=== PATIENT | female | born 1990 | race Caucasian/White ===

== ENCOUNTER 2021-05-25 17:38 | Inpatient (IN) | payer BC ==
[~2021-05-25 17:38] MED LIST: Bupivacaine 0.25% HCL 30 ML VIAL ONE
[2021-05-25] MEDS ORDERED: Butorphanol Tartrate 1 MG/ML VIAL SLOW IVP PRN (17:40)
[2021-05-25] MEDS ORDERED: Diphenoxylate HCl/Atropine Tablet PO PRN ×2 (17:40)
[2021-05-25] MEDS ORDERED: Lidocaine 1% (PF) 30 ML VIAL SC PRN (17:40)
[2021-05-25] MEDS ORDERED: Zolpidem Tartrate 5 MG TAB PO PRN (17:40)
[2021-05-25] MEDS ORDERED: HYDROcodone/Acetaminophen 5/325 mg Tablet PO PRN ×2 (17:40)
[2021-05-25] MEDS ORDERED: Ibuprofen 800 MG TAB PO PRN (17:40)
[2021-05-25] MEDS ORDERED: Misoprostol 200 MCG TAB PR PRN (17:40)
[2021-05-25] MEDS ORDERED: Acetaminophen 500 MG TAB PO PRN (17:40)
[2021-05-25] MEDS ORDERED: hydrALAZINE 20 MG/ML VIAL SLOW IVP PRN (17:40)
[2021-05-25] MEDS ORDERED: Ondansetron PF 4 MG/2 ML Vial IVP PRN (17:40)
[2021-05-25] MEDS ORDERED: Promethazine HCl 25 MG/ML VIAL IM PRN (17:40)
[2021-05-25] MEDS ORDERED: Docusate 100 MG CAP PO PRN (17:40)
[2021-05-25] MEDS ORDERED: Penicillin G Potassium 5 MILL.UNITS VIAL ONE (18:45)
[2021-05-25 18:59] VITALS: BMI 33.5
[2021-05-25] MEDS ORDERED: Penicillin G Potassium 5 MILL.UNITS in Sodium Chloride 0.9% 100 ML IVPB SCH (19:00)
[2021-05-25 19:14] LABS: Hemoglobin 10.2 g/dL (12.0-15.5); Mean Corpuscular HGB CONC 30.6 g/dL (32.0-36.0); Mean Corpuscular Hemoglobin 25.6 pg (27.0-33.0); Mean Corpuscular Volume 83.7 fl (81.6-98.3); Platelet Count 260 10x3/uL (150-450); RBC Distribution Width 15.2 % (11.5-14.5); Red Blood Cell (RBC) Count 3.98 10x6/uL (3.90-5.03); White Blood Cell (WBC) Count 12.2 10x3/uL (3.5-10.5)
[2021-05-25] MEDS ORDERED: Fentanyl 2 mcg/Bup 0.1% Cadd 100 ML ONE (19:40)
[2021-05-25 20:23] LABS: Syphilis Antibody Nonreactive (Nonreactive); Syphilis Antibody Index 0.06 S/CO (<1.00 Non-Reactive)
[2021-05-25] MEDS: Lactated Ringer's 1,000 ML IV SCH (20:24)
[2021-05-25 20:25] LABS: HIV (1/2) Antibody/Antigen Non-Reactive (NonReactive); Hep B Surf Ag Non-Reactive S/CO (NonReactive)
[2021-05-25 20:27] LABS: HBSAg Index 0.17 S/CO (0-0.99)
[2021-05-25 20:31] LABS: Glucose 79 mg/dL (70-105)
[2021-05-25] MEDS: Penicillin G 2.5 MILL.units 2.5 MILL.UNITS in Premix Bag 1 BAG IVPB SCH (23:01)
[2021-05-26] MEDS ORDERED: Promethazine HCl 25 MG/ML VIAL IM PRN (01:03)
[2021-05-26] MEDS ORDERED: Lactated Ringer's 500 ML IV PRN (01:03)
[2021-05-26] MEDS ORDERED: Hydrocerin (Eucerin) Cream 120 gm Jar TOP PRN (01:03)
[2021-05-26] MEDS ORDERED: diphenhydrAMINE 50 MG/ML VIAL IVP PRN (01:03)
[2021-05-26] MEDS ORDERED: Naloxone HCl 0.4 mg/ml Vial IVP PRN ×2 (01:03)
[2021-05-26] MEDS ORDERED: Ondansetron PF 4 MG/2 ML Vial IVP PRN ×2 (01:03→05:20)
[2021-05-26] MEDS ORDERED: Acetaminophen 325 MG TAB PO PRN (01:03)
[2021-05-26] MEDS ORDERED: ePHEDrine Sulfate 50 MG/10 ML VIAL SLOW IVP PRN (01:03)
[2021-05-26] MEDS ORDERED: Communication Order-Pharmacy FS SCH (01:15)
[2021-05-26] MEDS ORDERED: Fentanyl 2 mcg/Bupivacaine 0.1% Cassette 100 ML EPIDURAL SCH (01:15)
[2021-05-26] MEDS: Penicillin G 2.5 MILL.units 2.5 MILL.UNITS in Premix Bag 1 BAG IVPB SCH (03:13)
[2021-05-26] MEDS: NS w/ Oxytocin 30 units 500 ML IV SCH ×2 (04:20→05:15)
[2021-05-26] MEDS ORDERED: Misoprostol 200 MCG TAB VAG PRN (05:20)
[2021-05-26] MEDS ORDERED: Boostrix 0.5 ML (Tdap) VIAL IM ONE (05:20)
[2021-05-26] MEDS ORDERED: Zolpidem Tartrate 5 MG TAB PO PRN (05:20)
[2021-05-26] MEDS ORDERED: Bisacodyl 10 MG SUPP PR PRN (05:20)
[2021-05-26] MEDS ORDERED: HYDROcodone/Acetaminophen 5/325 mg Tablet PO PRN (05:20)
[2021-05-26] MEDS ORDERED: Milk Of Magnesia 30 ML UDCUP PO PRN (05:20)
[2021-05-26] MEDS ORDERED: Preparation H Ointment 28 GM TUBE PR PRN (05:20)
[2021-05-26] MEDS ORDERED: Benzocaine-Menthol 82.5 ML CAN TOP PRN (05:20)
[2021-05-26] MEDS ORDERED: diphenhydrAMINE 25 MG CAP PO PRN (05:20)
[2021-05-26] MEDS ORDERED: hydrALAZINE 20 MG/ML VIAL SLOW IVP PRN (05:20)
[2021-05-26] MEDS ORDERED: Lanolin Ointment 7 GM TUBE TOP PRN (05:20)
[2021-05-26] MEDS ORDERED: NS w/ Oxytocin 30 units 500 ML IV SCH (06:00)
[2021-05-26] MEDS: Lactated Ringer's 1,000 ML IV SCH (07:48)
[2021-05-26] MEDS: Ferrous Sulfate 325 MG TAB PO SCH ×2 (08:16→16:12)
[2021-05-26] MEDS: Ibuprofen 800 MG TAB PO SCH ×3 (08:16→21:54)
[2021-05-26] MEDS: Prenatal Vitamin 1 TAB PO SCH (08:16)
[2021-05-26] MEDS: Docusate 100 MG CAP PO SCH ×2 (08:16→21:54)
[2021-05-26] MEDS: HYDROcodone/Acetaminophen 5/325 mg Tablet PO PRN (17:51)
[2021-05-27 04:58] LABS: Hemoglobin 9.1 g/dL (12.0-15.5); Mean Corpuscular HGB CONC 30.1 g/dL (32.0-36.0); Mean Corpuscular Hemoglobin 25.8 pg (27.0-33.0); Mean Corpuscular Volume 85.6 fl (81.6-98.3); Platelet Count 212 10x3/uL (150-450); RBC Distribution Width 15.7 % (11.5-14.5); Red Blood Cell (RBC) Count 3.53 10x6/uL (3.90-5.03); White Blood Cell (WBC) Count 13.7 10x3/uL (3.5-10.5)
[2021-05-27] MEDS: Ibuprofen 800 MG TAB PO SCH (05:04)
[2021-05-27] MEDS: HYDROcodone/Acetaminophen 5/325 mg Tablet PO PRN ×2 (05:07→08:57)
[2021-05-27 07:41] VITALS: BP 122/73; TEMP 96.8
[2021-05-27] MEDS: Docusate 100 MG CAP PO SCH (08:51)
[2021-05-27] MEDS: Prenatal Vitamin 1 TAB PO SCH (08:51)
[2021-05-27] MEDS: Ferrous Sulfate 325 MG TAB PO SCH (08:51)
== END 2021-05-27 12:00 | disposition home or self-care (01) | DRG 807 ==
LOC: CSHLD 17:38 → CSHPP 05-26 06:40
PROVIDERS: ADMIT Obstetrics & Gynecology; ATTEND Obstetrics & Gynecology
PROC: 10E0XZZ Delivery of Products of Conception, External Approach (ICD-10-PCS; principal; 2021-05-25)
PROC: 0KQM0ZZ Repair Perineum Muscle, Open Approach (ICD-10-PCS; 2021-05-25)
DX: O42.013 Preterm premature rupture of membranes, onset of labor within 24 hours of rupture, third trimester (principal); Z37.0 Single live birth; Z3A.39 39 weeks gestation of pregnancy; O99.824 Streptococcus B carrier state complicating childbirth; Z86.16 Personal history of COVID-19; O99.02 Anemia complicating childbirth; D64.9 Anemia, unspecified; O24.429 Gestational diabetes mellitus in childbirth, unspecified control; F41.9 Anxiety disorder, unspecified; F90.9 Attention-deficit hyperactivity disorder, unspecified type; O99.344 Other mental disorders complicating childbirth; J45.909 Unspecified asthma, uncomplicated; O99.52 Diseases of the respiratory system complicating childbirth; O70.1 Second degree perineal laceration during delivery; O69.81X0 Labor and delivery complicated by cord around neck, without compression, not applicable or unspecified
CPT/HCPCS: 36415; 36416; 51702; 82947; 85027; 86780; 86850; 86900; 86901; 87340; 87389; J1200; J2405; J2540; J2590; J3490; J7120; S0020

== ENCOUNTER 2024-01-20 09:21 | Outpatient (CLI) | payer BC | END 2024-01-20 09:22 | disposition home or self-care (01) | LOC: CSHMAMMO 09:21 | PROVIDERS: ATTEND Nurse Practitioner Family | DX: N64.4 Mastodynia (principal); Z80.3 Family history of malignant neoplasm of breast | CPT/HCPCS: 77066; G0279 ==